=== PATIENT | female | born 1955 | race Caucasian/White ===

== ENCOUNTER → 2016-12-26 | Day surgery (SDC) | payer MEDICARE, SELFPAY ==
[~2016-12-26] MED LIST: ACETAMINOPHEN325 MG PO; ADULT TUSS100 MG/5 M PO; ASPIR 8181 MG PO; CINNAMON PLUS1 EACH PO; FLUTICASONE PRO16 GM NS; LASIX20 MG PO; LEVAQUIN750 MG PO; LOPRESSOR100 MG PO; NEURONTIN300 MG PO; NICOTINE TRANSD14 MG TOP; PREDNISONE10 MG PO; PROAIR HFA8.5 GM IH; SPIRIVA18 MCG IH; TESSALON PERLE100 MG PO; ZANTAC150 MG PO
== END | disposition home or self-care (01) ==
LOC: SDCH 06:30
DX: Z12.11 Encounter for screening for malignant neoplasm of colon (principal); D12.0 Benign neoplasm of cecum; D12.3 Benign neoplasm of transverse colon; D12.6 Benign neoplasm of colon, unspecified; I10 Essential (primary) hypertension; E11.9 Type 2 diabetes mellitus without complications; K21.9 Gastro-esophageal reflux disease without esophagitis; J44.9 Chronic obstructive pulmonary disease, unspecified; E66.01 Morbid (severe) obesity due to excess calories; G47.33 Obstructive sleep apnea (adult) (pediatric); Z99.89 Dependence on other enabling machines and devices; Z85.828 Personal history of other malignant neoplasm of skin; Z87.891 Personal history of nicotine dependence; Z80.0 Family history of malignant neoplasm of digestive organs; Z79.82 Long term (current) use of aspirin; Z79.899 Other long term (current) drug therapy; Z90.49 Acquired absence of other specified parts of digestive tract
CPT/HCPCS: J2704